=== PATIENT | female | born 1935 | race Caucasian/White ===

== ENCOUNTER 2019-03-27 13:06 | Inpatient (IN) | payer MEDICARE ==
[~2019-03-27] VITALS: Ht 167.6 cm; Wt 87.4 kg
--- NOTE | 2019-03-27 01:42 | NUR ---
pt was admitted from ER with admission diagnosis of left knee injury/femur fracture ,pt alert and oriented [place] and does not know how she fell,somehow loss her balance and fell injuring her left knee,patient refused leal agreed to carlos
--- NOTE | 2019-03-27 13:25 | PHYS DOC ---
Past Medical History Past Medical History: No Pertinent History Additional Past Surgical Histo: left knee arthroplasty Smoking: Cigarettes (The patient is a nonsmoker.) Adult General Chief Complaint Chief Complaint: MECHANICAL FALL HPI HPI Patient is an 83-year-old female, healthy, who ambulates without assistance, who presents to the emergency department for evaluation via EMS after suffering a mechanical fall at home. She states she was walking, and does not know how she fell she somehow lost her balance and fell, injuring her left knee. She denies any other painful areas or injuries, other than her left knee. She is unable to bear weight, or ambulate secondary to pain. Movement worsens her pain. There are no alleviating factors to her symptoms. She denies any numbness or weakness. She denies hitting her head, any headache, neck pain or neck injury, back pain, chest pain, dizziness or lightheadedness preceding her causing the fall. Review of Systems Review of Systems Constitutional: Denies fever or chills [] Eyes: Denies change in visual acuity, redness, or eye pain [] HENT: Denies nasal congestion or sore throat [] Respiratory: Denies cough or shortness of breath [] Cardiovascular: The patient denies any shortness of breath, chest pain, palpitations, or orthopnea [] GI: Denies abdominal pain, nausea, vomiting, bloody stools or diarrhea [] : Denies dysuria or hematuria [] Musculoskeletal: Denies back pain or joint pain other than left knee pain [] Integument: Denies rash or skin lesions [] Neurologic: Denies headache, focal weakness or sensory changes [] Endocrine: Denies polyuria or polydipsia [] All other systems were reviewed and found to be within normal limits, except as documented in this note. Current Medications Current Medications Current Medications Medications (Trade) Dose Ordered Sig/Arik Start Time Stop Time Status Last Admin Dose Admin Morphine Sulfate (Morphine Sulfate) 4 mg 1X ONCE 03/27/19 13:30 03/27/19 13:33 DC 03/27/19 13:36 4 MG Ondansetron HCl (Zofran) 4 mg 1X ONCE 03/27/19 13:30 03/27/19 13:33 DC 03/27/19 13:36 4 MG Allergies Allergies Allergies Coded Allergies Type Severity Reaction Last Updated Verified No Known Drug Allergies 03/27/19 No Physical Exam Physical Exam PHYSICAL EXAM: CONSTITUTIONAL: Well developed, well nourished HEAD: normocephalic, atraumatic EENT: PERRL, EOMI. Conjunctivae normal color, sclerae non-icteric; moist mucous membranes. NECK: Supple, non-tender; no meningismus.There is full, painless range of motion of the cervical spine, without any focal bony midline tenderness to palpation. LUNGS: Lungs CTA, breathing even and unlabored. Normal air movement. HEART: Regular rate and rhythm, no murmur CHEST: No deformity; non-tender ABDOMEN: The abdomen is soft, and non-tender, no masses or bruits. EXTREM: There is limited range of motion in the left knee, with tenderness to palpation in the left knee diffusely, with questionable mild soft tissue swelling. The patient is holding the left knee somewhat flexed, with her hip externally rotated. Distal PMS are intact. The remainder of the left lower extremity, including the hip, are nontender, range of motion is present. The remainder of extremities are atraumatic, with Normal ROM; no deformity, no calf tenderness. Normal pulses palpable in all extremities. There is no pedal edema. SKIN: No rash; no diaphoresis NEURO: Alert; normal speech and cognition; CN's grossly intact; strength grossly intact without focal deficit. BACK: No CVA TTP.There is no bony tenderness to palpation of the thoracic or lumbar spine. Current Patient Data Vital Signs Vital Signs Date Time Temp Pulse Resp B/P (MAP) Pulse Ox O2 Delivery O2 Flow Rate FiO2 03/27/19 13:36 Room Air 03/27/19 13:10 98.1 97 14 154/80 (104) 97 98.1 Lab Values Laboratory Tests Test 03/27/19 13:40 White Blood Count 5.9 x10^3/uL (4.0-11.0) Red Blood Count 5.06 x10^6/uL (3.50-5.40) Hemoglobin 15.2 g/dL (12.0-15.5) Hematocrit 45.7 % (36.0-47.0) Mean Corpuscular Volume 90 fL (79-100) Mean Corpuscular Hemoglobin 30 pg (25-35) Mean Corpuscular Hemoglobin Concent 33 g/dL (31-37) Red Cell Distribution Width 14.5 % (11.5-14.5) Platelet Count 186 x10^3/uL (140-400) Neutrophils (%) (Auto) 70 % (31-73) Lymphocytes (%) (Auto) 18 % (24-48) L Monocytes (%) (Auto) 9 % (0-9) Eosinophils (%) (Auto) 2 % (0-3) Basophils (%) (Auto) 1 % (0-3) Neutrophils # (Auto) 4.1 x10^3/uL (1.8-7.7) Lymphocytes # (Auto) 1.0 x10^3/uL (1.0-4.8) Monocytes # (Auto) 0.5 x10^3/uL (0.0-1.1) Eosinophils # (Auto) 0.1 x10^3/uL (0.0-0.7) Basophils # (Auto) 0.1 x10^3/uL (0.0-0.2) Prothrombin Time 14.5 SEC (11.7-14.0) H Prothrombin Time INR 1.2 (0.8-1.1) H Activated Partial Thromboplast Time 36 SEC (24-38) Sodium Level 143 mmol/L (136-145) Potassium Level 4.2 mmol/L (3.5-5.1) Chloride Level 106 mmol/L (98-107) Carbon Dioxide Level 28 mmol/L (21-32) Anion Gap 9 (6-14) Blood Urea Nitrogen 15 mg/dL (7-20) Creatinine 0.7 mg/dL (0.6-1.0) Estimated GFR (Cockcroft-Gault) 79.5 Glucose Level 104 mg/dL (70-99) H Calcium Level 9.8 mg/dL (8.5-10.1) Laboratory Tests 03/27/19 13:40 Laboratory Tests 03/27/19 13:40 EKG EKG [] Radiology/Procedures Radiology/Procedures PROCEDURE: KNEE LEFT 4V Four view left knee radiographs 03/27/2019 CLINICAL HISTORY: Left knee pain post fall. AP, oblique, lateral and sunrise digital radiographs of the left knee were obtained. These radiographs are limited to some degree due to the patient's very large body habitus/underpenetrated technique. The patient is post left TKA. A longitudinal lucency is seen through the distal diaphysis of the left femur which is felt to represent vascular channel. A nondisplaced fracture is considered less likely but is not excluded. There is a small moderate-sized suprapatellar joint effusion. IMPRESSION: A longitudinal lucency is seen within the distal diaphysis of left femur which is felt to represent a vascular channel. A nondisplaced fracture is considered less likely but is not excluded. Clinical correlation is recommended.[] Course & Med Decision Making Course & Med Decision Making Pertinent Labs and Imaging studies reviewed. (See chart for details) [] 2:20 PM: The patient's condition remains stable. She is still having significant pain in her left knee, left hip still remains nontender. Clinical suspicion for an occult fracture is high. CT we will obtain, the patient is unable to bear weight on be admitted to the hospitalist pending further evaluation. Orthopedic consultation will likely be required. CT imaging is currently pending at this time. Dragon Disclaimer Dragon Disclaimer This electronic medical record was generated, in whole or in part, using a voice recognition dictation system. Departure Departure Impression: Primary Impression: Femur fracture, left Disposition: ADMITTED INPATIENT Admitting Physician: CÉSAR Condition: STABLE RAQUEL MEHTA MD Mar 27, 2019 13:25
[2019-03-27] MEDS ORDERED: MORPHINE SULFATE 4 MG/ML VIAL. IV ONE (13:30)
[2019-03-27] MEDS ORDERED: ONDANSETRON PF 4 MG/2 ML VIAL. IVP ONE (13:30)
[2019-03-27 13:48] LABS: BASO # 0.1 x10^3/uL (0.0-0.2); BASO % 1 % (0-3); EOS # 0.1 x10^3/uL (0.0-0.7); EOS % 2 % (0-3); HEMATOCRIT 45.7 % (36.0-47.0); HEMOGLOBIN 15.2 g/dL (12.0-15.5); LYMPH % 18 % (24-48); MEAN CORPUSCULAR HEMOGLOBIN 30 pg (25-35); MEAN CORPUSCULAR HGB CONC 33 g/dL (31-37); MEAN CORPUSCULAR VOLUME 90 fL (79-100); MONO # 0.5 x10^3/uL (0.0-1.1); MONO % 9 % (0-9); NEUT # 4.1 x10^3/uL (1.8-7.7); NEUT % 70 % (31-73); PLATELET COUNT 186 x10^3/uL (140-400); RED BLOOD COUNT 5.06 x10^6/uL (3.50-5.40); RED CELL DISTRIBUTION WIDTH 14.5 % (11.5-14.5); WHITE BLOOD COUNT 5.9 x10^3/uL (4.0-11.0)
[2019-03-27 13:57] LABS: CALCIUM 9.8 mg/dL (8.5-10.1); CREATININE 0.7 mg/dL (0.6-1.0); GFR 79.5; POTASSIUM 4.2 mmol/L (3.5-5.1)
[2019-03-27 13:58] LABS: PROTHROMBIN TIME PATIENT 14.5 SEC (11.7-14.0)
--- NOTE | 2019-03-27 14:00 | RAD ---
Four view left knee radiographs 03/27/2019 CLINICAL HISTORY: Left knee pain post fall. AP, oblique, lateral and sunrise digital radiographs of the left knee were obtained. These radiographs are limited to some degree due to the patient's very large body habitus/underpenetrated technique. The patient is post left TKA. A longitudinal lucency is seen through the distal diaphysis of the left femur which is felt to represent vascular channel. A nondisplaced fracture is considered less likely but is not excluded. There is a small moderate-sized suprapatellar joint effusion. IMPRESSION: A longitudinal lucency is seen within the distal diaphysis of left femur which is felt to represent a vascular channel. A nondisplaced fracture is considered less likely but is not excluded. Clinical correlation is recommended. Electronically signed by: Avelino Quiroga MD (03/27/2019 1:57 PM) [id number]
--- NOTE | 2019-03-27 14:46 | RAD ---
CT of the left knee without contrast Indication: Pain after a fall. Fracture. Exposure: One or more of the following individualized dose reduction techniques were utilized for this examination: 1. Automated exposure control 2. Adjustment of the mA and/or kV according to patient size 3. Use of iterative reconstruction technique. Technique: Standard imaging without intravenous contrast. COMPARISON: Radiographs of the same day. FINDINGS: CT confirms a longitudinal fracture involving the posterior metadiaphysis of the visualized distal femur, extending superiorly beyond the [id number] of this scan, at least 11 cm cephalocaudal. No displacement. This corresponds with the fracture line identified on radiographs. Knee replacement, results in some adjacent artifact. No evidence of definite acute soft tissue abnormality. Muscle atrophy is noted. IMPRESSION: Longitudinal nondisplaced fracture through the visualized posterior cortex of the distal femur, corresponding with the radiographic abnormality. Note this proximally extends into the mid thigh, above the [id number] of the CT scan. Electronically signed by: Amado Ivey MD (03/27/2019 2:43 PM) [email or web address]
[2019-03-27] MEDS ORDERED: MAGNESIUM HYDROXIDE 2,400 MG/30 ML ORAL.SUSP. PO PRN (15:45)
[2019-03-27] MEDS ORDERED: ZOLPIDEM 5 MG TABLET. PO PRN (15:45)
--- NOTE | 2019-03-27 16:20 | PDOC1 ---
History and Physical Date of Admission Date of Admission DATE: 03/27/19 TIME: 16:13 Identification/Chief Complaint Chief Complaint mechanical fall Problems: (1) Femur fracture, left Source Source: Caregiver, Patient History of Present Illness History of Present Illness 83-year-old female without any significant medical problems, independently walks at home who presents to the ER after sustaining a ground level fall. patient states that her legs gave out. she was walking and did not know how she fell. she fell on her left knee. denies any other joint pain. unable to bear weight on her left side or bear weight on left leg. pain worse with mvt. denies any neuropathy. denies any head trauma, LOC, syncope, chest pain, palpitations, neck pain prior to fall. CT femur shows left distal femur fracture. hospitalist called for admission. Past Medical History Cardiovascular: No pertinent hx Past Surgical History Past Surgical History: No pertinent history Family History Family History: Family History Unknown Social History Smoke: No ALCOHOL: none Drugs: None Current Problem List Problem List Problems Medical Problems: (1) Femur fracture, left Status: Acute Current Medications Current Medications Current Medications Morphine Sulfate (Morphine Sulfate) 4 mg 1X ONCE IV Last administered on 03/27/19at 13:36; Start 03/27/19 at 13:30; Stop 03/27/19 at 13:33; Status DC Ondansetron HCl (Zofran) 4 mg 1X ONCE IVP Last administered on 03/27/19at 13:36; Start 03/27/19 at 13:30; Stop 03/27/19 at 13:33; Status DC Morphine Sulfate (Morphine Sulfate) 4 mg PRN Q2HR PRN IV PAIN; Start 03/27/19 at 14:30; Stop 03/28/19 at 14:29 Zolpidem Tartrate (Ambien) 5 mg PRN QHS PRN PO INSOMNIA, MAY REPEAT IN 1HR; Start 03/27/19 at 15:45 Acetaminophen/ Hydrocodone Bitart (Lortab 5/325) 1 tab PRN Q4HRS PRN PO MILD PAIN 1-3; Start 03/27/19 at 15:45 Docusate Sodium (Colace) 100 mg BID PO ; Start 03/27/19 at 21:00; Status UNV Magnesium Hydroxide (Milk Of Magnesia) 2,400 mg PRN Q12HR PRN PO CONSTIPATION; Start 03/27/19 at 15:45 Heparin Sodium (Porcine) (Heparin Sodium) 5,000 unit Q8HRS SQ ; Start 03/27/19 at 22:00; Status UNV Allergies Allergies: Coded Allergies: No Known Drug Allergies (Unverified , 03/27/19) ROS Review of System CONSTITUTIONAL: No fever or chills EYES: No recent changes SKIN: No rash or itching CARDIOVASCULAR: No chest pain, syncope, palpitations, or edema RESPIRATORY: No SOB or cough GASTROINTESTINAL: No nausea, vomiting or abdominal pain NEUROLOGICAL: No headaches or weakness ENDOCRINE: No cold or heat intolerance GENITOURINARY: No urgency or frequency of urination MUSCULOSKELETAL: No back pain or joint pain LYMPHATICS: No enlarged lymph nodes PSYCHIATRIC: No anxiety or depression Physical Exam Physical Exam GENERAL: No apparent distress. Alert and oriented. HEENT: Head normocephalic, atraumatic. NECK: Supple LUNGS: Clear to auscultation. HEART: RRR, S1, S2 present, pulses intact ABDOMEN: Soft, positive bowel sounds. EXTREMITIES: unable to move left leg. left knee swollen NEUROLOGIC: Normal speech, normal tone PSYCHIATRIC: Normal affect, normal mood. SKIN: No ulceration. Vitals Vitals Vital Signs Date Time Temp Pulse Resp B/P (MAP) Pulse Ox O2 Delivery O2 Flow Rate FiO2 03/27/19 15:04 86 90 03/27/19 13:36 Room Air 03/27/19 13:10 98.1 14 154/80 (104) 98.1 Labs Labs Laboratory Tests Test 03/27/19 13:40 White Blood Count 5.9 x10^3/uL (4.0-11.0) Red Blood Count 5.06 x10^6/uL (3.50-5.40) Hemoglobin 15.2 g/dL (12.0-15.5) Hematocrit 45.7 % (36.0-47.0) Mean Corpuscular Volume 90 fL (79-100) Mean Corpuscular Hemoglobin 30 pg (25-35) Mean Corpuscular Hemoglobin Concent 33 g/dL (31-37) Red Cell Distribution Width 14.5 % (11.5-14.5) Platelet Count 186 x10^3/uL (140-400) Neutrophils (%) (Auto) 70 % (31-73) Lymphocytes (%) (Auto) 18 % (24-48) Monocytes (%) (Auto) 9 % (0-9) Eosinophils (%) (Auto) 2 % (0-3) Basophils (%) (Auto) 1 % (0-3) Neutrophils # (Auto) 4.1 x10^3/uL (1.8-7.7) Lymphocytes # (Auto) 1.0 x10^3/uL (1.0-4.8) Monocytes # (Auto) 0.5 x10^3/uL (0.0-1.1) Eosinophils # (Auto) 0.1 x10^3/uL (0.0-0.7) Basophils # (Auto) 0.1 x10^3/uL (0.0-0.2) Prothrombin Time 14.5 SEC (11.7-14.0) Prothromb Time International Ratio 1.2 (0.8-1.1) Activated Partial Thromboplast Time 36 SEC (24-38) Sodium Level 143 mmol/L (136-145) Potassium Level 4.2 mmol/L (3.5-5.1) Chloride Level 106 mmol/L (98-107) Carbon Dioxide Level 28 mmol/L (21-32) Anion Gap 9 (6-14) Blood Urea Nitrogen 15 mg/dL (7-20) Creatinine 0.7 mg/dL (0.6-1.0) Estimated GFR (Cockcroft-Gault) 79.5 Glucose Level 104 mg/dL (70-99) Calcium Level 9.8 mg/dL (8.5-10.1) Laboratory Tests Test 03/27/19 13:40 White Blood Count 5.9 x10^3/uL (4.0-11.0) Red Blood Count 5.06 x10^6/uL (3.50-5.40) Hemoglobin 15.2 g/dL (12.0-15.5) Hematocrit 45.7 % (36.0-47.0) Mean Corpuscular Volume 90 fL (79-100) Mean Corpuscular Hemoglobin 30 pg (25-35) Mean Corpuscular Hemoglobin Concent 33 g/dL (31-37) Red Cell Distribution Width 14.5 % (11.5-14.5) Platelet Count 186 x10^3/uL (140-400) Neutrophils (%) (Auto) 70 % (31-73) Lymphocytes (%) (Auto) 18 % (24-48) Monocytes (%) (Auto) 9 % (0-9) Eosinophils (%) (Auto) 2 % (0-3) Basophils (%) (Auto) 1 % (0-3) Neutrophils # (Auto) 4.1 x10^3/uL (1.8-7.7) Lymphocytes # (Auto) 1.0 x10^3/uL (1.0-4.8) Monocytes # (Auto) 0.5 x10^3/uL (0.0-1.1) Eosinophils # (Auto) 0.1 x10^3/uL (0.0-0.7) Basophils # (Auto) 0.1 x10^3/uL (0.0-0.2) Prothrombin Time 14.5 SEC (11.7-14.0) Prothromb Time International Ratio 1.2 (0.8-1.1) Activated Partial Thromboplast Time 36 SEC (24-38) Sodium Level 143 mmol/L (136-145) Potassium Level 4.2 mmol/L (3.5-5.1) Chloride Level 106 mmol/L (98-107) Carbon Dioxide Level 28 mmol/L (21-32) Anion Gap 9 (6-14) Blood Urea Nitrogen 15 mg/dL (7-20) Creatinine 0.7 mg/dL (0.6-1.0) Estimated GFR (Cockcroft-Gault) 79.5 Glucose Level 104 mg/dL (70-99) Calcium Level 9.8 mg/dL (8.5-10.1) VTE Prophylaxis Ordered VTE Prophylaxis Devices: Yes VTE Pharmacological Prophylaxi: Yes Assessment/Plan Assessment/Plan Assessment s/p mechanical fall nondisplaced left distal femur fracture full code plan ortho consult nonweightbearing to right LE dvt ppx full code further plans pending ortho eval will need PT once cleared by ortho patient takes only calcium supplements at home MONICA OBANOD MD Mar 27, 2019 16:20
[2019-03-27] MEDS: MORPHINE SULFATE 4 MG/ML VIAL. IV PRN (18:24)
[2019-03-27 19:00] VITALS: BP 137/69
--- NOTE | 2019-03-27 21:00 | NUR ---
pt had dressing on her right foot stated no wound just help lessen the pain when she wear her right ankle brace taking calcium daily cant recall name and dont know the address [facility] pharmacy in [place]
[2019-03-27] MEDS: DOCUSATE SODIUM 100 MG CAPSULE. PO SCH (21:38)
[2019-03-27] MEDS: HEPARIN for SUB-Q USE 5,000 UNIT/ML VIAL. SQ SCH (21:40)
[2019-03-27 23:00] VITALS: BP 111/60
--- NOTE | 2019-03-27 23:30 | NUR ---
paged Dr Perez answering service talked to Deborah informed of the consult
[2019-03-28] MEDS: HYDROcodone/APAP 5/325MG 1 TAB TABLET PO PRN ×3 (00:43→19:50)
--- NOTE | 2019-03-28 01:22 | CONS ---
DATE OF CONSULTATION: ORTHOPEDIC CONSULTATION NOTE REQUESTING PHYSICIAN: Tommy Jackson MD. REASON FOR CONSULTATION: Left knee pain and femur fracture, status post fall. HISTORY OF PRESENT ILLNESS: The patient is an 83-year-old female who otherwise lives and ambulates independently and is healthy, who was walking along at home. She somehow lost her balance and fell and landed awkwardly on her left knee area, had immediate onset of pain, inability to bear weight and increased pain with movement of her knee and leg as well. She denies any loss of consciousness. No neck or back pain, chest pain, dizziness or visual changes. PAST MEDICAL HISTORY: She really has no pertinent medical history. PAST SURGICAL HISTORY: Significant for left total knee arthroplasty, which was done years ago, she believes by Dr. Toussaint. MEDICATIONS: She received morphine and Zofran in the hospital. ALLERGIES: She has no known drug allergies. FAMILY HISTORY: Noncontributory. SOCIAL HISTORY: Denies smoking, alcohol or drug use and again lives independently. REVIEW OF SYSTEMS: As above in the history of present illness. Note that she denies any focal weakness, numbness, tingling. No dizziness or lightheadedness prior to or after the fall. No loss of consciousness, head injury or other extremity pain whatsoever and significant only for the left knee pain with attempted weightbearing and movement. PHYSICAL EXAMINATION: GENERAL: She is a pleasant, cooperative 83-year-old female, alert and oriented, no acute distress at rest on her [facility] in the Emergency Department. HEENT: Atraumatic, normocephalic, nontender on palpation over the neck or back. NECK: She has good neck range of motion. MUSCULOSKELETAL: Normal shoulder, elbow and wrist motion, alignment and stability. No tenderness on palpation or observed swelling. EXTREMITIES: Examination of lower extremities, her jeans are cut off above the level of the left knee and she has tenderness on palpation over the distal femur. There is no ligamentous instability noted. She is very limited in her range of motion of the left knee compared to the right secondary to pain, but has good patellofemoral tracking and a well-healed midline incision from total knee arthroplasty. She has normal hip and ankle range of motion bilaterally and a well-placed total knee arthroplasty on the contralateral right knee as well. Likewise with a well-healed midline incision and overall intact motor function, distal pulses, sensation, reflexes, skin in both upper and lower extremities throughout. IMAGING: X-rays of the left knee on the anterior, posterior view shows a small nondisplaced crack extending up the distal femur that is roughly aligned with the lateral edge of the anterior phalange of the distal femoral component. Other views of the component showed no evidence of any dislodgement of the femoral component. The patella does not appear to have been resurfaced and there is no evidence of fracture, instability or loosening of the knee components. CT scan of the left lower extremity does confirm a nondisplaced crack of the posterior cortex of the distal femur consistent with the x-ray findings. Impression: Nondisplaced longitudinal distal femur fracture with well-aligned solidly placed total knee arthroplasty. IMPRESSION: 1. Left distal femur fracture. 2. History of bilateral total knees. 3. Inability to bear weight and ambulate. TREATMENT PLAN: She has already been admitted and is awaiting transfer up to the floor for ongoing care. I explained to her that I would expect nonoperative management of this injury and while we could potentially place her in a knee immobilizer as needed for comfort, I would prefer not to if she is able to gently move the knee and institute protected weightbearing perhaps with a walker or crutches that she prefers and I think gentle movement of the knee as she tolerates would help minimize the risk of any stiffness. All her questions were answered given that she had no other medical issues. I had asked if they can provide her with a tray as she was still waiting down in the Emergency Department for transfer to the floor. I expect generally on her discharge, some type of limitation of her weightbearing is symptomatically necessary and follow up in my clinic in approximately 3 weeks for repeat x-rays and recheck of her progress. LEONCIO CURTIS MD DR: [email or web address]/[email or web address] JOB#: [id number] / [id number]
[2019-03-28 02:57] VITALS: BP 125/58
[2019-03-28] MEDS: HEPARIN for SUB-Q USE 5,000 UNIT/ML VIAL. SQ SCH ×3 (06:04→22:32)
[2019-03-28 07:00] VITALS: BP 125/64
[2019-03-28] MEDS: DOCUSATE SODIUM 100 MG CAPSULE. PO SCH ×2 (09:14→19:49)
[2019-03-28] MEDS: MORPHINE SULFATE 4 MG/ML VIAL. IV PRN ×2 (09:48→14:28)
[2019-03-28 11:00] VITALS: BP 125/59
--- NOTE | 2019-03-28 13:05 | NUR ---
SW following. Discussed with RN, pt is from home with . Non operative fracture. PT recommending SNU. Await OT notes. Pt will need 2 more midnights for medicare to cover SNU. SW will continue to follow.
--- NOTE | 2019-03-28 13:12 | PDOC ---
PROGRESS NOTES Chief Complaint Chief Complaint Assessment s/p mechanical fall nondisplaced left distal femur fracture full code plan ortho consult--non-operative weightbearing as tolerated to left leg dvt ppx full code PT consult patient takes only calcium supplements at home check vit d level will need placement History of Present Illness History of Present Illness pain about the same Vitals Vitals Vital Signs Date Time Temp Pulse Resp B/P (MAP) Pulse Ox O2 Delivery O2 Flow Rate FiO2 03/28/19 12:46 16 Room Air 03/28/19 11:00 97.8 72 125/59 (81) 92 97.8 Labs LABS Laboratory Tests Test 03/27/19 13:40 White Blood Count 5.9 x10^3/uL (4.0-11.0) Red Blood Count 5.06 x10^6/uL (3.50-5.40) Hemoglobin 15.2 g/dL (12.0-15.5) Hematocrit 45.7 % (36.0-47.0) Mean Corpuscular Volume 90 fL (79-100) Mean Corpuscular Hemoglobin 30 pg (25-35) Mean Corpuscular Hemoglobin Concent 33 g/dL (31-37) Red Cell Distribution Width 14.5 % (11.5-14.5) Platelet Count 186 x10^3/uL (140-400) Neutrophils (%) (Auto) 70 % (31-73) Lymphocytes (%) (Auto) 18 % (24-48) Monocytes (%) (Auto) 9 % (0-9) Eosinophils (%) (Auto) 2 % (0-3) Basophils (%) (Auto) 1 % (0-3) Neutrophils # (Auto) 4.1 x10^3/uL (1.8-7.7) Lymphocytes # (Auto) 1.0 x10^3/uL (1.0-4.8) Monocytes # (Auto) 0.5 x10^3/uL (0.0-1.1) Eosinophils # (Auto) 0.1 x10^3/uL (0.0-0.7) Basophils # (Auto) 0.1 x10^3/uL (0.0-0.2) Prothrombin Time 14.5 SEC (11.7-14.0) Prothromb Time International Ratio 1.2 (0.8-1.1) Activated Partial Thromboplast Time 36 SEC (24-38) Sodium Level 143 mmol/L (136-145) Potassium Level 4.2 mmol/L (3.5-5.1) Chloride Level 106 mmol/L (98-107) Carbon Dioxide Level 28 mmol/L (21-32) Anion Gap 9 (6-14) Blood Urea Nitrogen 15 mg/dL (7-20) Creatinine 0.7 mg/dL (0.6-1.0) Estimated GFR (Cockcroft-Gault) 79.5 Glucose Level 104 mg/dL (70-99) Calcium Level 9.8 mg/dL (8.5-10.1) Assessment and Plan Assessmemt and Plan Problems Medical Problems: (1) Femur fracture, left Status: Acute Comment Review of Relevant I have reviewed the following items aden (where applicable) has been applied. Labs Laboratory Tests Test 03/27/19 13:40 White Blood Count 5.9 x10^3/uL (4.0-11.0) Red Blood Count 5.06 x10^6/uL (3.50-5.40) Hemoglobin 15.2 g/dL (12.0-15.5) Hematocrit 45.7 % (36.0-47.0) Mean Corpuscular Volume 90 fL (79-100) Mean Corpuscular Hemoglobin 30 pg (25-35) Mean Corpuscular Hemoglobin Concent 33 g/dL (31-37) Red Cell Distribution Width 14.5 % (11.5-14.5) Platelet Count 186 x10^3/uL (140-400) Neutrophils (%) (Auto) 70 % (31-73) Lymphocytes (%) (Auto) 18 % (24-48) Monocytes (%) (Auto) 9 % (0-9) Eosinophils (%) (Auto) 2 % (0-3) Basophils (%) (Auto) 1 % (0-3) Neutrophils # (Auto) 4.1 x10^3/uL (1.8-7.7) Lymphocytes # (Auto) 1.0 x10^3/uL (1.0-4.8) Monocytes # (Auto) 0.5 x10^3/uL (0.0-1.1) Eosinophils # (Auto) 0.1 x10^3/uL (0.0-0.7) Basophils # (Auto) 0.1 x10^3/uL (0.0-0.2) Prothrombin Time 14.5 SEC (11.7-14.0) Prothromb Time International Ratio 1.2 (0.8-1.1) Activated Partial Thromboplast Time 36 SEC (24-38) Sodium Level 143 mmol/L (136-145) Potassium Level 4.2 mmol/L (3.5-5.1) Chloride Level 106 mmol/L (98-107) Carbon Dioxide Level 28 mmol/L (21-32) Anion Gap 9 (6-14) Blood Urea Nitrogen 15 mg/dL (7-20) Creatinine 0.7 mg/dL (0.6-1.0) Estimated GFR (Cockcroft-Gault) 79.5 Glucose Level 104 mg/dL (70-99) Calcium Level 9.8 mg/dL (8.5-10.1) Laboratory Tests Test 03/27/19 13:40 White Blood Count 5.9 x10^3/uL (4.0-11.0) Red Blood Count 5.06 x10^6/uL (3.50-5.40) Hemoglobin 15.2 g/dL (12.0-15.5) Hematocrit 45.7 % (36.0-47.0) Mean Corpuscular Volume 90 fL (79-100) Mean Corpuscular Hemoglobin 30 pg (25-35) Mean Corpuscular Hemoglobin Concent 33 g/dL (31-37) Red Cell Distribution Width 14.5 % (11.5-14.5) Platelet Count 186 x10^3/uL (140-400) Neutrophils (%) (Auto) 70 % (31-73) Lymphocytes (%) (Auto) 18 % (24-48) Monocytes (%) (Auto) 9 % (0-9) Eosinophils (%) (Auto) 2 % (0-3) Basophils (%) (Auto) 1 % (0-3) Neutrophils # (Auto) 4.1 x10^3/uL (1.8-7.7) Lymphocytes # (Auto) 1.0 x10^3/uL (1.0-4.8) Monocytes # (Auto) 0.5 x10^3/uL (0.0-1.1) Eosinophils # (Auto) 0.1 x10^3/uL (0.0-0.7) Basophils # (Auto) 0.1 x10^3/uL (0.0-0.2) Prothrombin Time 14.5 SEC (11.7-14.0) Prothromb Time International Ratio 1.2 (0.8-1.1) Activated Partial Thromboplast Time 36 SEC (24-38) Sodium Level 143 mmol/L (136-145) Potassium Level 4.2 mmol/L (3.5-5.1) Chloride Level 106 mmol/L (98-107) Carbon Dioxide Level 28 mmol/L (21-32) Anion Gap 9 (6-14) Blood Urea Nitrogen 15 mg/dL (7-20) Creatinine 0.7 mg/dL (0.6-1.0) Estimated GFR (Cockcroft-Gault) 79.5 Glucose Level 104 mg/dL (70-99) Calcium Level 9.8 mg/dL (8.5-10.1) Medications Current Medications Morphine Sulfate (Morphine Sulfate) 4 mg 1X ONCE IV Last administered on 03/27/19 13:36; Start 03/27/19 at 13:30; Stop 03/27/19 at 13:33; Status DC Ondansetron HCl (Zofran) 4 mg 1X ONCE IVP Last administered on 03/27/19 13:36; Start 03/27/19 at 13:30; Stop 03/27/19 at 13:33; Status DC Morphine Sulfate (Morphine Sulfate) 4 mg PRN Q2HR PRN IV PAIN Last administered on 03/28/19at 09:48; Start 03/27/19 at 14:30; Stop 03/28/19 at 14:29 Zolpidem Tartrate (Ambien) 5 mg PRN QHS PRN PO INSOMNIA, MAY REPEAT IN 1HR; Start 03/27/19 at 15:45 Acetaminophen/ Hydrocodone Bitart (Lortab 5/325) 1 tab PRN Q4HRS PRN PO MILD PAIN 1-3 Last administered on 03/28/19at 11:45; Start 03/27/19 at 15:45 Docusate Sodium (Colace) 100 mg BID PO Last administered on 03/28/19at 09:14; Start 03/27/19 at 21:00 Magnesium Hydroxide (Milk Of Magnesia) 2,400 mg PRN Q12HR PRN PO CONSTIPATION; Start 03/27/19 at 15:45 Heparin Sodium (Porcine) (Heparin Sodium) 5,000 unit Q8HRS SQ Last administered on 03/28/19at 06:04; Start 03/27/19 at 22:00 Vitals/I & O Vital Sign - Last 24 Hours 03/27/19 03/27/19 03/27/19 03/27/19 13:36 14:10 14:34 15:04 Pulse 86 83 86 Pulse Ox 100 93 90 O2 Delivery Room Air 03/27/19 03/27/19 03/27/19 03/27/19 15:34 16:04 16:34 17:04 Pulse 83 83 80 80 Pulse Ox 91 95 90 98 03/27/19 03/27/19 03/27/19 03/27/19 17:34 18:24 19:00 19:30 Temp 97.8 97.8 Pulse 86 83 Resp 16 18 20 B/P (MAP) 137/69 (91) Pulse Ox 97 91 O2 Delivery Room Air Room Air Room Air 03/27/19 03/27/19 03/28/19 03/28/19 20:30 23:00 00:43 02:00 Temp 97.7 97.7 Pulse 74 Resp 18 20 18 B/P (MAP) 111/60 (77) Pulse Ox 92 O2 Delivery Room Air Room Air Room Air Room Air 03/28/19 03/28/19 03/28/19 03/28/19 02:57 07:00 08:00 09:48 Temp 97.4 98.2 97.4 98.2 Pulse 74 84 Resp 18 16 16 B/P (MAP) 125/58 (80) 125/64 (84) Pulse Ox 95 92 O2 Delivery Room Air Room Air Room Air Room Air 03/28/19 03/28/19 03/28/19 03/28/19 10:20 11:00 11:45 12:46 Temp 97.8 97.8 Pulse 72 Resp 16 18 16 16 B/P (MAP) 125/59 (81) Pulse Ox 92 O2 Delivery Room Air Room Air Room Air Room Air Intake and Output 03/27/19 03/27/19 03/28/19 15:00 23:00 07:00 Intake Total 0 ml Output Total 400 ml Balance -400 ml MONICA OBANDO MD Mar 28, 2019 13:12
[2019-03-28 15:00] VITALS: BP 144/90
[2019-03-28 19:00] VITALS: BP 127/58
[2019-03-28 23:00] VITALS: BP 125/63
[2019-03-29 03:00] VITALS: BP 138/80
[2019-03-29] MEDS: DOCUSATE SODIUM 100 MG CAPSULE. PO SCH ×2 (06:14→20:14)
[2019-03-29] MEDS: HYDROcodone/APAP 5/325MG 1 TAB TABLET PO PRN ×4 (06:15→20:17)
[2019-03-29] MEDS: HEPARIN for SUB-Q USE 5,000 UNIT/ML VIAL. SQ SCH ×3 (06:18→23:22)
[2019-03-29] MEDS ORDERED: CALC500T54 PO (06:36)
[2019-03-29 07:15] VITALS: BP 144/68
--- NOTE | 2019-03-29 09:22 | NUR ---
EUGENIA following. Discussed with RN. PT/OT recommending SNU. EUGENIA met with pt, she would like referral sent to [facility]. EUGENIA to fax referral, pt will need one more midnight. RN notified. Addendum: 03/29/19 at 1149 by PAULINA BELLO Pt is accepted at [facility] for SNU. Anticipate discharge tomorrow (03/30/2019). RN notified.
[2019-03-29 11:04] VITALS: BP 142/51
--- NOTE | 2019-03-29 15:02 | PDOC ---
PROGRESS NOTES Chief Complaint Chief Complaint Assessment s/p mechanical fall nondisplaced left distal femur fracture full code plan ortho consult--non-operative weight bearing as tolerated to left leg dvt ppx full code PT consult patient takes only calcium supplements at home check vit d level- normal will need placement--likely kashif History of Present Illness History of Present Illness agreeable to rehab. no acute issues overnight. Vitals Vitals Vital Signs Date Time Temp Pulse Resp B/P (MAP) Pulse Ox O2 Delivery O2 Flow Rate FiO2 03/29/19 14:16 16 Room Air 03/29/19 11:04 98.4 74 142/51 (81) 96 98.4 Assessment and Plan Assessmemt and Plan Problems Medical Problems: (1) Femur fracture, left Status: Acute Comment Review of Relevant I have reviewed the following items aden (where applicable) has been applied. Medications Current Medications Morphine Sulfate (Morphine Sulfate) 4 mg 1X ONCE IV Last administered on 03/27/19at 13:36; Start 03/27/19 at 13:30; Stop 03/27/19 at 13:33; Status DC Ondansetron HCl (Zofran) 4 mg 1X ONCE IVP Last administered on 03/27/19at 13:36; Start 03/27/19 at 13:30; Stop 03/27/19 at 13:33; Status DC Morphine Sulfate (Morphine Sulfate) 4 mg PRN Q2HR PRN IV PAIN Last administered on 03/28/19at 14:28; Start 03/27/19 at 14:30; Stop 03/28/19 at 14:29; Status DC Zolpidem Tartrate (Ambien) 5 mg PRN QHS PRN PO INSOMNIA, MAY REPEAT IN 1HR; Start 03/27/19 at 15:45 Acetaminophen/ Hydrocodone Bitart (Lortab 5/325) 1 tab PRN Q4HRS PRN PO MILD PAIN 1-3 Last administered on 03/29/19at 14:16; Start 03/27/19 at 15:45 Docusate Sodium (Colace) 100 mg BID PO Last administered on 03/29/19at 06:14; Start 03/27/19 at 21:00 Magnesium Hydroxide (Milk Of Magnesia) 2,400 mg PRN Q12HR PRN PO CONSTIPATION; Start 03/27/19 at 15:45 Heparin Sodium (Porcine) (Heparin Sodium) 5,000 unit Q8HRS SQ Last administered on 03/29/19at 14:20; Start 03/27/19 at 22:00 Active Scripts Active Reported Calcium (Calcium Carbonate) 500 Mg Tab.chew 1 Tab PO DAILY 30 Days Vitals/I & O Vital Sign - Last 24 Hours 03/28/19 03/28/19 03/28/19 03/28/19 19:00 19:45 19:50 20:50 Temp 98.3 98.3 Pulse 75 Resp 18 16 16 B/P (MAP) 127/58 (81) Pulse Ox 91 O2 Delivery Room Air Room Air Room Air Room Air 03/28/19 03/29/19 03/29/19 03/29/19 23:00 03:00 06:15 07:15 Temp 97.5 98.3 97.5 98.3 Pulse 88 76 Resp 18 18 16 B/P (MAP) 125/63 (83) 138/80 (99) Pulse Ox 91 92 O2 Delivery Room Air Room Air Room Air Room Air 03/29/19 03/29/19 03/29/19 03/29/19 07:15 08:05 10:06 11:04 Temp 98.0 98.4 98.0 98.4 Pulse 68 74 Resp 18 16 20 B/P (MAP) 144/68 (93) 142/51 (81) Pulse Ox 95 96 O2 Delivery Room Air Room Air Room Air Room Air 03/29/19 14:16 Resp 16 O2 Delivery Room Air Intake and Output 03/28/19 03/28/19 03/29/19 15:00 23:00 07:00 Intake Total 200 ml Output Total 550 ml 150 ml Balance -550 ml 50 ml MONICA OBANDO MD Mar 29, 2019 15:02
[2019-03-29 15:15] VITALS: BP 139/52
[2019-03-29 19:00] VITALS: BP 156/52
[2019-03-29 23:00] VITALS: BP 137/52
[2019-03-30 03:00] VITALS: BP 153/67
[2019-03-30] MEDS: HYDROcodone/APAP 5/325MG 1 TAB TABLET PO PRN ×3 (06:02→12:50)
[2019-03-30] MEDS: HEPARIN for SUB-Q USE 5,000 UNIT/ML VIAL. SQ SCH (06:20)
[2019-03-30 07:00] VITALS: BP 148/70
--- NOTE | 2019-03-30 09:22 | NUR ---
EUGENIA following. Discussed with RN. Pt can discharge to [facility] today. SW awaiting discharge paperwork and any scripts. EUGENIA will continue to follow. Addendum: 03/30/19 at 1303 by PAULINA BELLO Transportation arranged for 1400. RN notified.
[2019-03-30] MEDS: DOCUSATE SODIUM 100 MG CAPSULE. PO SCH (09:25)
[2019-03-30] MEDS ORDERED: DOCU-153 PO (09:48)
[2019-03-30] MEDS ORDERED: HYDR-2761 PO (09:48)
--- NOTE | 2019-03-30 09:48 | SNU/HH DC ---
DISCHARGE ORDERS DISCHARGE INFORMATION: DISCHARGE DATE: Mar 30, 2019 FINAL DIAGNOSIS Problems Medical Problems: (1) Femur fracture, left Status: Acute CONDITION ON DISCHARGE: Stable CODE STATUS: Code Status: Full [facility]: SNF STAY <30 DAYS: Yes POST DISCHARGE ORDERS: ACTIVITY ORDERS: Activity as tolerated DIET AFTER DISCHARGE: Regular CHECKS AFTER DISCHARGE: CHECKS AFTER DISCHARGE: Check blood press - daily TREATMENT/EQUIPMENT ORDERS: Physical Therapy For: Evalulation/Treatment Occupational Therapy For: Evaluation/Treatment DISCHARGE MEDICATIONS: Home Meds Active Scripts Docusate Sodium (DOK) 100 Mg Capsule, 100 MG PO BID PRN for CONSTIPATION for 7 Days, #14 CAP Prov:MONICA OBANDO MD 03/30/19 Hydrocodone Bit/Acetaminophen (HYDROCODONE-APAP 5-325 ) 1 Tab Tablet, 1 TAB PO PRN Q4HRS PRN for MILD PAIN 1-3 for 5 Days, #30 TAB Prov:MONICA OBANDO MD 03/30/19 Reported Medications Calcium Carbonate (CALCIUM) 500 Mg Tab.chew, 1 TAB PO DAILY for supplement for 30 Days, #30 TAB 0 Refills 03/29/19 MONICA OBANDO MD Mar 30, 2019 09:48
--- NOTE | 2019-03-30 10:00 | PDOC3 ---
Discharge Summary Visit Information Date of Admission: Mar 27, 2019 Date of Discharge: Mar 30, 2019 Final Diagnosis Problems Medical Problems: (1) Femur fracture, left Status: Acute Brief Hospital Course Allergies Allergies Coded Allergies Type Severity Reaction Last Updated Verified No Known Drug Allergies 03/27/19 No Vital Signs GENERAL: No apparent distress. Alert and oriented. HEENT: Head normocephalic, atraumatic. NECK: Supple LUNGS: Clear to auscultation. HEART: RRR, S1, S2 present, pulses intact ABDOMEN: Soft, positive bowel sounds. EXTREMITIES: No cyanosis or edema. NEUROLOGIC: Normal speech, normal tone PSYCHIATRIC: Normal affect, normal mood. SKIN: No ulceration. Vital Signs Date Time Temp Pulse Resp B/P (MAP) Pulse Ox O2 Delivery O2 Flow Rate FiO2 03/30/19 08:01 Room Air 03/30/19 07:00 97.9 76 16 148/70 (98) 92 97.9 Brief Hospital Course 83-year-old female without any significant medical problems, independently walks at home who presents to the ER after sustaining a ground level fall. patient states that her legs gave out. she was walking and did not know how she fell. she fell on her left knee. denies any other joint pain. unable to bear weight on her left side or bear weight on left leg. pain worse with mvt. denies any neuropathy. denies any head trauma, LOC, syncope, chest pain, palpitations, neck pain prior to fall. CT femur shows left distal femur fracture. hospitalist called for admission. patient admitted for nondisplaced left distal femur fracture. oprtho consulted and no plans for sx. patient worked well with PT. pain controlled. vit d level checked and normal. patient will be discharged today in stable condition. Discharge Information Condition at Discharge: Stable Disposition/Orders: D/C to Another Facility Scheduled Calcium Carbonate (Calcium) 500 Mg Tab.chew, 1 TAB PO DAILY for supplement for 30 Days, #30 Ref 0 (Reported) Entered as Reported by: DEMOND HEATH on 03/29/19635 Last Action: New Order on 03/29/19635 by DEMOND HEATH Scheduled PRN Docusate Sodium (Dok) 100 Mg Capsule, 100 MG PO BID PRN for CONSTIPATION for 7 Days, #14 Prescribed by: MONICA OBANDO MD on 2/6/20 0948 Hydrocodone Bit/Acetaminophen (Hydrocodone-Apap 5-325 ) 1 Tab Tablet, 1 TAB PO PRN Q4HRS PRN for MILD PAIN 1-3 for 5 Days, #30 Prescribed by: MONICA OBANDO MD on 03/30/19947 MONICA OBANDO MD Mar 30, 2019 10:00
[2019-03-30 11:00] VITALS: BP 144/69
--- NOTE | 2019-03-30 14:14 | NUR ---
Pt. transferred to via per transportation. Transfer packet with pt.
== END 2019-03-30 14:15 | DRG 534 ==
LOC: ER 13:06 → ED HOLD 14:20 → 4 NORTH 18:20
PROVIDERS: ADMIT Internal Medicine; ATTEND Internal Medicine
DX: S72.402A Unspecified fracture of lower end of left femur, initial encounter for closed fracture (principal); Z96.652 Presence of left artificial knee joint; Z87.891 Personal history of nicotine dependence; W01.0XXA Fall on same level from slipping, tripping and stumbling without subsequent striking against object, initial encounter; Y93.89 Activity, other specified; Y92.89 Other specified places as the place of occurrence of the external cause; Y99.8 Other external cause status
CPT/HCPCS: 36415; 73564; 73700; 80048; 82306; 85025; 85610; 85730; 96374; 96375; J1644; J2270; J2405; 97110; 97530; 97535; 99285-25; G0378

== ENCOUNTER → 2019-07-20 | Outpatient (CLI) | payer MEDICARE ==
[2019-07-07 11:11] VITALS: BP 141/70
[~2019-07-20] MED LIST: CALC500T54 PO; DOCU-153 PO; HYDR-2761 PO; IBUP-1027 PO; LIDO700A21 TP; MENT118G TP; POLY17PO29 PO; PSYL3.4P PO; TIZA4TAB2 PO; TRAM50TA PO; WARF4TAB68 PO
[2019-07-20 08:43] LABS: PROTHROMBIN TIME PATIENT 20.1 SEC (11.7-14.0)
== END | disposition home or self-care (01) ==
LOC: SPEC 08:17
PROVIDERS: ATTEND Internal Medicine
DX: S72.25XD Nondisplaced subtrochanteric fracture of left femur, subsequent encounter for closed fracture with routine healing (principal); X58.XXXD Exposure to other specified factors, subsequent encounter; Z96.81 Presence of artificial skin; Z79.01 Long term (current) use of anticoagulants
CPT/HCPCS: 36415; 85610

== ENCOUNTER → 2019-07-24 | Outpatient (CLI) | payer MEDICARE ==
[2019-07-07 11:11] VITALS: BP 141/70
[2019-07-24 12:35] LABS: PROTHROMBIN TIME PATIENT 23.2 SEC (11.7-14.0)
== END | disposition home or self-care (01) ==
LOC: SPEC 12:16
PROVIDERS: ATTEND Internal Medicine
DX: S72.25XD Nondisplaced subtrochanteric fracture of left femur, subsequent encounter for closed fracture with routine healing (principal); X58.XXXD Exposure to other specified factors, subsequent encounter; Z79.01 Long term (current) use of anticoagulants
CPT/HCPCS: 36415; 85610

== ENCOUNTER → 2019-07-27 | Outpatient (CLI) | payer MEDICARE ==
[2019-07-07 11:11] VITALS: BP 141/70
[2019-07-27 09:13] LABS: PROTHROMBIN TIME PATIENT 25.4 SEC (11.7-14.0)
== END | disposition home or self-care (01) ==
LOC: SPEC 08:40
PROVIDERS: ATTEND Internal Medicine
DX: S72.492D Other fracture of lower end of left femur, subsequent encounter for closed fracture with routine healing (principal); X58.XXXD Exposure to other specified factors, subsequent encounter; Y92.89 Other specified places as the place of occurrence of the external cause; Y93.89 Activity, other specified; Y99.8 Other external cause status; Z91.81 History of falling
CPT/HCPCS: 36415; 85610

== ENCOUNTER → 2019-07-31 | Outpatient (CLI) | payer MEDICARE ==
[2019-07-07 11:11] VITALS: BP 141/70
[2019-07-31 10:26] LABS: PROTHROMBIN TIME PATIENT 23.4 SEC (11.7-14.0)
== END | disposition home or self-care (01) ==
LOC: SPEC 09:26
PROVIDERS: ATTEND Internal Medicine
DX: I48.0 Paroxysmal atrial fibrillation (principal)
CPT/HCPCS: 36415; 85610

== ENCOUNTER → 2019-08-07 | Outpatient (CLI) | payer MEDICARE ==
[2019-07-07 11:11] VITALS: BP 141/70
[2019-08-07 09:04] LABS: BASO % 1 % (0-3); EOS # 0.2 x10^3/uL (0.0-0.7); EOS % 4 % (0-3); HEMATOCRIT 34.3 % (36.0-47.0); HEMOGLOBIN 11.1 g/dL (12.0-15.5); LYMPH # 1.1 x10^3/uL (1.0-4.8); LYMPH % 24 % (24-48); MEAN CORPUSCULAR HEMOGLOBIN 27 pg (25-35); MEAN CORPUSCULAR HGB CONC 32 g/dL (31-37); MEAN CORPUSCULAR VOLUME 82 fL (79-100); MONO # 0.5 x10^3/uL (0.0-1.1); MONO % 10 % (0-9); NEUT # 2.9 x10^3/uL (1.8-7.7); NEUT % 62 % (31-73); PLATELET COUNT 263 x10^3/uL (140-400); RED BLOOD COUNT 4.18 x10^6/uL (3.50-5.40); RED CELL DISTRIBUTION WIDTH 16.7 % (11.5-14.5); WHITE BLOOD COUNT 4.7 x10^3/uL (4.0-11.0)
[2019-08-07 09:16] LABS: PROTHROMBIN TIME PATIENT 21.5 SEC (11.7-14.0)
[2019-08-07 09:35] LABS: CREATININE 0.7 mg/dL (0.6-1.0); GFR 79.3
== END | disposition home or self-care (01) ==
LOC: SPEC 08:22
PROVIDERS: ATTEND Internal Medicine
DX: S72.25XD Nondisplaced subtrochanteric fracture of left femur, subsequent encounter for closed fracture with routine healing (principal); R74.0 Nonspecific elevation of levels of transaminase and lactic acid dehydrogenase [LDH]; Z96.653 Presence of artificial knee joint, bilateral; Z79.01 Long term (current) use of anticoagulants; X58.XXXD Exposure to other specified factors, subsequent encounter
CPT/HCPCS: 36415; 80048; 85025; 85610

== ENCOUNTER → 2019-08-14 | Outpatient (CLI) | payer MEDICARE ==
[2019-07-07 11:11] VITALS: BP 141/70
[2019-08-14 11:00] LABS: PROTHROMBIN TIME PATIENT 21.6 SEC (11.7-14.0)
== END | disposition home or self-care (01) ==
LOC: SPEC 10:27
PROVIDERS: ATTEND Internal Medicine
DX: S72.25XD Nondisplaced subtrochanteric fracture of left femur, subsequent encounter for closed fracture with routine healing (principal); X58.XXXD Exposure to other specified factors, subsequent encounter; Z79.01 Long term (current) use of anticoagulants
CPT/HCPCS: 36415; 85610

== ENCOUNTER 2021-02-20 08:43 | Emergency (ER) | payer MEDICARE ==
[~2021-02-20] VITALS: Ht 167.6 cm; Wt 79.5 kg
[~2021-02-20 08:43] MED LIST changes: +DOCU-148 PO; -DOCU-153 PO; +TIZA-75 PO; -TIZA4TAB2 PO
[2021-02-20] MEDS ORDERED: IOHEXOL 240 MG/ML 50ML VIAL. PO ONE (09:30)
[2021-02-20] MEDS ORDERED: IOHEXOL 300 MG/ML 100ML VIAL. IV ONE ×2 (09:30→10:45)
--- NOTE | 2021-02-20 09:49 | PHYS DOC ---
Past Medical History Past Medical History: Constipation Past Surgical History: Hysterectomy, Oophorectomy, Tonsillectomy Additional Past Surgical Histo: left knee arthroplasty,bilat cataract removal,L FEMUR ORIF Smoking Status: Never Smoker Alcohol Use: None General Adult EDM: Chief Complaint: RECTAL BLEED HPI: HPI: Patient is a 85 year old female who presents with bright red blood per rectum since last night. Patient denies pain. She reports associated weakness and bowel movements with significant blood in the stool approximately every 2 hours. Patient denies lightheadedness, dizziness, emesis or hematochezia, melena, history of hemorrhoids. Review of Systems: Review of Systems: Constitutional: Denies fever or chills. Eyes: Denies change in visual acuity or visual field deficits. HENT: Denies nasal congestion or sore throat. Respiratory: Denies cough or shortness of breath. Cardiovascular: Denies chest pain or edema. GI: See HPI : Denies dysuria or hematuria. Musculoskeletal: Denies back pain or joint pain. Integument: Denies rash or other skin lesions Neurologic: Denies headache, focal weakness or sensory changes. Heart Score: C/O Chest Pain: No Current Medications: Current Medications Medications (Trade) Dose Ordered Sig/Arik Start Time Stop Time Status Last Admin Dose Admin Iohexol (Omnipaque 240 Mg/ml) 50 ml 1X ONCE 02/20/21 09:30 02/20/21 09:31 DC Iohexol (Omnipaque 300 Mg/ml) 75 ml 1X ONCE 02/20/21 09:30 02/20/21 09:31 DC Allergies: Allergies: Allergies Coded Allergies Type Severity Reaction Last Updated Verified No Known Drug Allergies 03/27/19 No Physical Exam: PE: Constitutional: Well developed, well nourished, no acute distress, patient is resting in bed, appears fatigued. HENT: Normocephalic, atraumatic, bilateral external ears without deformity or discharge, oropharynx moist, no oral exudates, nose without deformity or discharge. Eyes: PERRLA, EOMI, conjunctiva normal, no discharge. Cardiovascular: Heart rate regular rhythm, no obvious murmur. Lungs & Thorax: Bilateral breath sounds clear to auscultation. Abdomen: Bowel sounds normal, soft, no tenderness, no masses, no pulsatile masses. Rectal: Bright red blood appreciated on brief and near rectum, one external hemorrhoid at 2:00 without strangulation, sphincter tone intact, no internal hemorrhoids appreciated, significant amount of stool in rectal vault. Skin: Healing ecchymosis noted on the left hip. Intertriginous gluteal erythema consistent with tinea. Skin otherwise warm, dry, no erythema, no rash. Neurologic: Alert and oriented x4, no focal deficits noted. Current Patient Data: Labs: Laboratory Tests Test 02/20/21 08:57 White Blood Count 5.3 x10^3/uL (4.0-11.0) Red Blood Count 4.73 x10^6/uL (3.50-5.40) Hemoglobin 14.2 g/dL (12.0-15.5) Hematocrit 44.1 % (36.0-47.0) Mean Corpuscular Volume 93 fL (79-100) Mean Corpuscular Hemoglobin 30 pg (25-35) Mean Corpuscular Hemoglobin Concent 32 g/dL (31-37) Red Cell Distribution Width 14.4 % (11.5-14.5) Platelet Count 189 x10^3/uL (140-400) Neutrophils (%) (Auto) 71 % (31-73) Lymphocytes (%) (Auto) 15 % (24-48) Monocytes (%) (Auto) 10 % (0-9) Eosinophils (%) (Auto) 4 % (0-3) Basophils (%) (Auto) 1 % (0-3) Neutrophils # (Auto) 3.8 x10^3/uL (1.8-7.7) Lymphocytes # (Auto) 0.8 x10^3/uL (1.0-4.8) Monocytes # (Auto) 0.5 x10^3/uL (0.0-1.1) Eosinophils # (Auto) 0.2 x10^3/uL (0.0-0.7) Basophils # (Auto) 0.0 x10^3/uL (0.0-0.2) Prothrombin Time 12.3 SEC (11.7-14.0) Prothromb Time International Ratio 0.9 (0.8-1.1) Activated Partial Thromboplast Time 35 SEC (24-38) Sodium Level 144 mmol/L (136-145) Potassium Level 3.9 mmol/L (3.5-5.1) Chloride Level 107 mmol/L (98-107) Carbon Dioxide Level 26 mmol/L (21-32) Anion Gap 11 (6-14) Blood Urea Nitrogen 14 mg/dL (7-20) Creatinine 0.6 mg/dL (0.6-1.0) Estimated GFR (Cockcroft-Gault) 94.6 BUN/Creatinine Ratio 23 (6-20) Glucose Level 85 mg/dL (70-99) Calcium Level 9.2 mg/dL (8.5-10.1) Magnesium Level 2.0 mg/dL (1.8-2.4) Total Bilirubin 1.2 mg/dL (0.2-1.0) Aspartate Amino Transf (AST/SGOT) 74 U/L (15-37) Alanine Aminotransferase (ALT/SGPT) 258 U/L (14-59) Alkaline Phosphatase 200 U/L (46-116) Total Protein 6.5 g/dL (6.4-8.2) Albumin 3.4 g/dL (3.4-5.0) Albumin/Globulin Ratio 1.1 (1.0-1.7) Lipase 104 U/L (73-393) Vital Signs: Vital Signs Date Time Temp Pulse Resp B/P (MAP) Pulse Ox O2 Delivery O2 Flow Rate FiO2 02/20/21 08:43 98.5 92 18 165/85 (111) 97 Room Air 98.5 Radiology/Procedures: Radiology/Procedures: PROCEDURE: HIP LEFT 2V WITH PELVIS EXAM: Pelvis and left hip, 2 views. HISTORY: Fall. COMPARISON: None. FINDINGS: A frontal view of the pelvis and frog-leg view of the left hip are obtained. There is no convincing acute fracture. There is internal fixation of a left femoral diaphyseal fracture, partially included on the [id number]. 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 There is degenerative change involving the lumbar spine, not formally assessed on this exam. IMPRESSION: No acute osseous finding. Electronically signed by: Sanjana Peña MD (02/20/2021 10:32 AM) [id number] PROCEDURE: CT ABD PELV W/ IV CONTRST ONLY EXAM: Abdomen and pelvis CT with intravenous contrast. HISTORY: Bright red blood per rectum. TECHNIQUE: Computed tomographic images of the abdomen and pelvis were obtained following the administration of intravenous contrast. Multiplanar reformatting was performed. *One or more of the following individualized dose reduction techniques were utilized for this examination: 1. Automated exposure control. 2. Adjustment of the mA and/or kV according to patient size. 3. Use of iterative reconstruction technique. COMPARISON: None. FINDINGS: Evaluation of the lower thorax demonstrates right middle lobe, lingular and left lower lobe atelectasis or scarring. There is posterior dependent atelectasis. There is no infiltrate or pleural effusion. There is cardiomegaly. No suspicious hepatic lesion is seen. There is punctate calcification along the gallbladder wall likely due to cholelithiasis. 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 The pancreas, spleen and adrenal glands are unremarkable. There are multiple simple renal cysts, the largest of which is an exophytic cyst along the posterior mid zone of the left kidney measuring 5.8 cm. There are is left renal caliectasis. There is no jo-ann hydronephrosis. There is no appendicitis. There is no bowel obstruction. There is distal colonic diverticulosis. There is no convincing diverticulitis. There is no aortic aneurysm. There is no lymphadenopathy. The bladder is distended. The uterus is absent. There is no suspicious adnexal lesion. There is lumbar scoliosis and multilevel degenerative change throughout the lumbar spine. There is no acute osseous finding. IMPRESSION: 1. Colonic diverticulosis. There is no convincing diverticulitis. 2. Multiple simple appearing renal cysts. Follow-up is not routinely performed for simple cysts. 3. 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 There is no jo-ann hydronephrosis. 4. Suspected punctate gallbladder wall calcification or cholelithiasis. Electronically signed by: Sanjana Peña MD (02/20/2021 12:22 PM) [id number] Course & Med Decision Making: Course & Med Decision Making Pertinent Labs and Imaging studies reviewed. (See chart for details) Patient is an 85-year-old female who presents with bright red blood in her stool since last night. Work-up will include labs, type and screen, coagulation studies, CT abdomen pelvis. Imaging does not show any evidence of infection or perforation. Physical exam does show external hemorrhoid. Lab work is very reassuring, patient does not have evidence of hemorrhagic anemia. Patient will be provided with GI referral as well as instruction for at home hemorrhoid treatment. She was provided with return precautions as well. Patient understands and is agreeable to discharge plan. Dragon Disclaimer: Dragon Disclaimer: This electronic medical record was generated, in whole or in part, using a voice recognition dictation system. Departure Departure Impression: Primary Impression: External hemorrhoid, bleeding Additional Impressions: Diverticulosis of colon without diverticulitis Tinea of perianal region Disposition: HOME / SELF CARE / HOMELESS Condition: STABLE Referrals: KIMBERLY NAGY (PCP) ARNOLDO BOWLES MD Patient Instructions: Diverticulosis, Hemorrhoids, [id number] Additional Instructions: Your imaging today did not show evidence of perforation or infection in your abdomen or pelvis. You should follow-up with gastroenterology (Dr. Bowles's group) regarding today's imaging study findings. Please return to the emergency department if your symptoms worsen or you develop new ones. Scripts Danni Rossi (PREPARATION H) 1 Each Med..pad 1 EACH TP PRN, #1 BOX Prov: AJITH HODGES 02/20/21 Ketoconazole (KETOCONAZOLE) 15 Gm Cream..g. 1 MIEK TP DAILY for 14 Days, #1 BOX Prov: AJITH HODGES 02/20/21 AJITH HODGES Feb 20, 2021 09:49
[2021-02-20] MEDS ORDERED: IV NORMAL SALINE 1000ML BAG 1,000 ML IV ONE (10:00)
[2021-02-20 10:15] LABS: BASO % 1 % (0-3); EOS # 0.2 x10^3/uL (0.0-0.7); EOS % 4 % (0-3); HEMATOCRIT 44.1 % (36.0-47.0); HEMOGLOBIN 14.2 g/dL (12.0-15.5); LYMPH # 0.8 x10^3/uL (1.0-4.8); LYMPH % 15 % (24-48); MEAN CORPUSCULAR HEMOGLOBIN 30 pg (25-35); MEAN CORPUSCULAR HGB CONC 32 g/dL (31-37); MEAN CORPUSCULAR VOLUME 93 fL (79-100); MONO # 0.5 x10^3/uL (0.0-1.1); MONO % 10 % (0-9); NEUT # 3.8 x10^3/uL (1.8-7.7); NEUT % 71 % (31-73); PLATELET COUNT 189 x10^3/uL (140-400); RED BLOOD COUNT 4.73 x10^6/uL (3.50-5.40); RED CELL DISTRIBUTION WIDTH 14.4 % (11.5-14.5); WHITE BLOOD COUNT 5.3 x10^3/uL (4.0-11.0)
--- NOTE | 2021-02-20 10:34 | RAD ---
EXAM: Pelvis and left hip, 2 views. HISTORY: Fall. COMPARISON: None. FINDINGS: A frontal view of the pelvis and frog-leg view of the left hip are obtained. There is no co nvincing acute fracture. There is internal fixation of a left femoral diaphyseal fracture, partially included on the [id number]. 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 There is degene rative change involving the lumbar spine, not formally assessed on this exam. IMPRESSION: No acute osseous finding. Electronically signed by: Sanjana Peña MD (02/20/2021 10:32 AM) [id number]
[2021-02-20 10:37] LABS: CALCIUM 9.2 mg/dL (8.5-10.1); CREATININE 0.6 mg/dL (0.6-1.0); GFR 94.6; POTASSIUM 3.9 mmol/L (3.5-5.1)
[2021-02-20 10:44] LABS: ALBUMIN 3.4 g/dL (3.4-5.0); ALBUMIN/GLOBULIN RATIO 1.1 (1.0-1.7); TOTAL BILIRUBIN 1.2 mg/dL (0.2-1.0); TOTAL PROTEIN 6.5 g/dL (6.4-8.2)
[2021-02-20 10:46] LABS: PROTHROMBIN TIME PATIENT 12.3 SEC (11.7-14.0)
[2021-02-20] MEDS ORDERED: CONTRAST GIVEN. MC PRN (11:00)
--- NOTE | 2021-02-20 12:24 | RAD ---
EXAM: Abdomen and pelvis CT with intravenous contrast. HISTORY: Bright red blood per rectum. TECHNIQUE: Computed tomographic images of the abdomen and pelvis were obtained following the administ ration of intravenous contrast. Multiplanar reformatting was performed. *One or more of the following individualized dose reduction techniques were utilized for this examina tion: 1. Automated exposure control. 2. Adjustment of the mA and/or kV according to patient size. 3. Use of iterative reconstruction technique. COMPARISON: None. FINDINGS: Evaluation of the lower thorax demonstrates right middle lobe, lingular and left lower lobe atelectasis or scarring. There is posterior dependent atelectasis. There is no infiltrate or pleural effusion. There is cardiomegaly. No suspicious hepatic lesion is seen. There is punctate calcification along the gallbladder wall like ly due to cholelithiasis. 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 The pancreas, spleen and ad renal glands are unremarkable. There are multiple simple renal cysts, the largest of which is an exop hytic cyst along the posterior mid zone of the left kidney measuring 5.8 cm. There are is left renal caliectasis. There is no jo-ann hydronephrosis. There is no appendicitis. There is no bowel obstruction. There is distal colonic diverticulosis. Ther e is no convincing diverticulitis. There is no aortic aneurysm. There is no lymphadenopathy. The blad maria de jesus is distended. The uterus is absent. There is no suspicious adnexal lesion. There is lumbar scoliosis and multilevel degenerative change throughout the lumbar spine. There is no acute osseous finding. IMPRESSION: 1. Colonic diverticulosis. There is no convincing diverticulitis. 2. Multiple simple appearing renal cysts. Follow-up is not routinely performed for simple cysts. 3. 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 There is no jo-ann hydronephrosis. 4. Suspected punctate gallbladder wall calcification or cholelithiasis. Electronically signed by: Sanjana Peña MD (02/20/2021 12:22 PM) [id number]
[2021-02-20 13:29] VITALS: BP 184/83
[2021-02-20] MEDS ORDERED: WITC1MED TP (13:45)
[2021-02-20] MEDS ORDERED: KETO15CR2 TP (13:45)
== END 2021-02-20 14:40 | disposition home or self-care (01) ==
LOC: ER 08:43
DX: K64.4 Residual hemorrhoidal skin tags (principal); K57.30 Diverticulosis of large intestine without perforation or abscess without bleeding; B35.8 Other dermatophytoses
CPT/HCPCS: 36415; 73502; 74177; 80053; 83690; 83735; 85025; 85610; 85730; 86850; 86900; 86901; 96360; 99285; J7030; Q9967